=== PATIENT | female | born 1995 | race Two or more races ===

== ENCOUNTER → 2024-04-10 | Outpatient (CLI) | payer MEDICAID ==
[2024-04-10 16:31] LABS: Basophils # (auto) 0 10 ^3/uL (0-0.2); Basophils % (auto) 0.6 % (0.0-2.0); Eosinophils # (auto) 0.1 10 ^3/uL (0-0.8); Hematocrit 35.8 % (36.0-46.0); Lymphocytes # (auto) 1.6 10 ^3/uL (0.4-5.4); Lymphocytes % (auto) 23.7 % (10.0-50.0); Mean Corpuscular Hemoglobin 27.2 pg (28.0-32.0); Mean Corpuscular Hgb Conc. 33.6 g/dL (32.0-36.0); Mean Corpuscular Volume 80.9 fL (80.0-100.0); Monocytes # (auto) 0.5 10 ^3/uL (0-1.3); Monocytes % (auto) 7.5 % (0.0-12.0); Neutrophils # (auto) 4.7 10 ^3/uL (1.6-8.6); Neutrophils % (auto) 67.2 % (37.0-80.0); Nucleated Red Blood Cells % 0.1 %; Platelet Count (auto) 294 10^3/uL (140-450); Red Blood Cells 4.42 10^6/uL (4.0-5.20); Red Cell Distribution Width 17.1 % (11.8-14.3); White Blood Cell 6.9 10^3/uL (4.4-10.8)
[2024-04-10 17:12] LABS: Triglycerides 120 mg/dL (< 150)
[2024-04-10 17:13] LABS: LDL Cholesterol 114 mg/dL (< 100)
[2024-04-10 17:14] LABS: Cholesterol 181 mg/dL (< 200); HDL Cholesterol 57 mg/dL (40-59)
[2024-04-10 17:22] LABS: Thyroid Stimulating Hormone 1.3 uIU/mL (0.55-4.78)
[2024-04-10 17:25] LABS: Beta HCG, Quantitative 52322.4 mIU/mL (1.5-4.2)
[2024-04-11 07:07] LABS: RPR Non Reactive (Non Reactive)
[2024-04-11 22:06] LABS: Chlamydia Trachomatis, NAA Negative (Negative); Neisseria gonorrhoeae, NAA Negative (Negative)
[2024-04-13 05:09] LABS: QuantiFERON-TB Gold Plus Negative (Negative)
== END | disposition home or self-care (01) ==
LOC: LAB 15:47
PROVIDERS: ATTEND Obstetrics & Gynecology
DX: Z34.00 Encounter for supervision of normal first pregnancy, unspecified trimester (principal); Z36.0 Encounter for antenatal screening for chromosomal anomalies; Z31.430 Encounter of female for testing for genetic disease carrier status for procreative management; N39.0 Urinary tract infection, site not specified
CPT/HCPCS: 36415; 80061; 83036; 84439; 84443; 84702; 85025; 86592; 86703; 86762; 86850; 86900; 86901; 87086; 87340; 87902

== ENCOUNTER → 2024-08-04 | Outpatient (CLI) | payer MEDICAID ==
[2024-08-04 09:47] LABS: Basophils # (auto) 0 10 ^3/uL (0-0.2); Basophils % (auto) 0.3 % (0.0-2.0); Eosinophils # (auto) 0.1 10 ^3/uL (0-0.8); Eosinophils % (auto) 0.9 % (0.0-7.0); Hematocrit 35.8 % (36.0-46.0); Hemoglobin 12.2 g/dL (12.2-16.2); Lymphocytes # (auto) 1.2 10 ^3/uL (0.4-5.4); Lymphocytes % (auto) 11.4 % (10.0-50.0); Mean Corpuscular Hemoglobin 29.5 pg (28.0-32.0); Mean Corpuscular Hgb Conc. 34.1 g/dL (32.0-36.0); Mean Corpuscular Volume 86.5 fL (80.0-100.0); Monocytes # (auto) 1.1 10 ^3/uL (0-1.3); Neutrophils # (auto) 8.1 10 ^3/uL (1.6-8.6); Neutrophils % (auto) 77.4 % (37.0-80.0); Platelet Count (auto) 231 10^3/uL (140-450); Red Blood Cells 4.14 10^6/uL (4.0-5.20); White Blood Cell 10.5 10^3/uL (4.4-10.8)
[2024-08-04 10:17] LABS: Alanine Aminotransferase 27 U/L (7-40); Albumin 4.1 g/dL (3.2-4.8); Alkaline Phosphatase 80 U/L (46-116); Anion Gap 7 (5-15); Aspartate Aminotransferase 22 U/L (13-40); Calcium 9.6 mg/dL (8.7-10.4); Carbon Dioxide 25 mmol/L (20-31); Chloride 105 mmol/L (98-107); Glucose 76 mg/dL (74-106); Potassium 3.8 mmol/L (3.5-5.1); Sodium 137 mmol/L (136-145)
[2024-08-04 10:19] LABS: Bilirubin, Total 0.6 mg/dL (0.2-1.0); Total Protein 6.5 g/dL (5.7-8.2)
[2024-08-04 10:24] LABS: BUN/Creatinine Ratio 8.8 (10.0-20.0); Blood Urea Nitrogen < 5 mg/dL (9-23)
[2024-08-05 07:06] LABS: RPR Non Reactive (Non Reactive)
[2024-08-05 22:06] LABS: Chlamydia Trachomatis, NAA Negative (Negative); Neisseria gonorrhoeae, NAA Negative (Negative)
== END | disposition home or self-care (01) ==
LOC: LAB 09:22
PROVIDERS: ATTEND Obstetrics & Gynecology
DX: Z34.80 Encounter for supervision of other normal pregnancy, unspecified trimester (principal)
CPT/HCPCS: 36415; 80053; 82951; 83036; 85025; 86592; 86850; 86900; 86901

== ENCOUNTER → 2024-09-17 | Outpatient (CLI) | payer MEDICAID ==
[2024-09-17 11:58] LABS: Basophils # (auto) 0 10 ^3/uL (0-0.2); Basophils % (auto) 0.3 % (0.0-2.0); Eosinophils # (auto) 0.1 10 ^3/uL (0-0.8); Eosinophils % (auto) 0.9 % (0.0-7.0); Hematocrit 38.5 % (36.0-46.0); Hemoglobin 13.3 g/dL (12.2-16.2); Lymphocytes # (auto) 1.7 10 ^3/uL (0.4-5.4); Lymphocytes % (auto) 19.9 % (10.0-50.0); Mean Corpuscular Hemoglobin 29.3 pg (28.0-32.0); Mean Corpuscular Hgb Conc. 34.5 g/dL (32.0-36.0); Monocytes # (auto) 0.9 10 ^3/uL (0-1.3); Monocytes % (auto) 11.1 % (0.0-12.0); Neutrophils # (auto) 5.8 10 ^3/uL (1.6-8.6); Neutrophils % (auto) 67.8 % (37.0-80.0); Nucleated Red Blood Cells % 0.1 %; Platelet Count (auto) 217 10^3/uL (140-450); Red Blood Cells 4.53 10^6/uL (4.0-5.20); Red Cell Distribution Width 13.8 % (11.8-14.3); White Blood Cell 8.5 10^3/uL (4.4-10.8)
[2024-09-17 12:26] LABS: Alanine Aminotransferase 11 U/L (7-40); Anion Gap 8 (5-15); Calcium 9.9 mg/dL (8.7-10.4); Carbon Dioxide 24 mmol/L (20-31); Chloride 107 mmol/L (98-107); Potassium 3.9 mmol/L (3.5-5.1); Sodium 139 mmol/L (136-145); Total Protein 6.7 g/dL (5.7-8.2); Uric Acid 4.3 mg/dL (3.1-7.8)
[2024-09-17 12:27] LABS: Albumin 4.1 g/dL (3.2-4.8); Aspartate Aminotransferase 17 U/L (13-40); Bilirubin, Total 0.6 mg/dL (0.2-1.0)
[2024-09-17 12:40] LABS: Alkaline Phosphatase 116 U/L (46-116); BUN/Creatinine Ratio 8.9 (10.0-20.0); Blood Urea Nitrogen < 5 mg/dL (9-23); Glucose 67 mg/dL (74-106)
[2024-09-17 13:10] LABS: Protein, Urine < 6.0 mg/dL (1-14)
[2024-09-17 13:11] LABS: Creatinine, Urine 34.29 mg/dL (30.0-125.0); Urine Protein/Creatinine Ratio 0.17
== END | disposition home or self-care (01) ==
LOC: LAB 11:24
PROVIDERS: ATTEND Obstetrics & Gynecology
DX: Z34.80 Encounter for supervision of other normal pregnancy, unspecified trimester (principal); Z3A.00 Weeks of gestation of pregnancy not specified
CPT/HCPCS: 36415; 80053; 82570; 84156; 84550; 85025

== ENCOUNTER → 2024-09-24 | Outpatient (CLI) | payer MEDICAID ==
[2024-09-24 10:43] LABS: Protein, Urine < 6.0 mg/dL (1-14); Urine Total Volume, 24 Hours 2400 mL
== END | disposition home or self-care (01) ==
LOC: LAB 10:06
PROVIDERS: ATTEND Obstetrics & Gynecology
DX: Z34.80 Encounter for supervision of other normal pregnancy, unspecified trimester (principal); Z3A.00 Weeks of gestation of pregnancy not specified
CPT/HCPCS: 84156

== ENCOUNTER 2024-10-09 07:08 | Observation (INO) | payer MEDICAID ==
--- NOTE | 2024-10-09 15:51 | DVH ---
BIOPHYSICAL PROFILE HISTORY: IUGR TECHNIQUE: Multiple transabdominal real-time grayscale sonographic images through the gravid uterus of the fetus with duplex Doppler color flow and M-mode spectral analysis FINDINGS: BIOPHYSICAL PROFILE: breathing score: 2 movement score: 2 tone score: 2 Quantitative OLIVIA score: 2 (OLIVIA: 10.9 Cm.) Total score: 8/8 The cervix not measured Single live fetus in cephalic presentation. heart rate 136 beats per minute. Anterior Grade 2-3 placenta without previa or abruption Single live fetus at 36 weeks 1 day Biophysical profile score 8/8 corresponding to an EFREN of 11/05/2024 Estimated weight not calculated g IMPRESSION: 1. Biophysical profile score: 8/8
[2024-10-09] MEDS ORDERED: PREN-96 PO (16:23)
--- NOTE | 2024-10-14 14:24 | DVHDS2 ---
Physician Discharge Progress N Final Diagnosis: iugr Operations or Procedures: Operations or Procedures nst,sono Condition on Discharge: Good Disposition: Home Discharge Instructions: Diet: Regular Activity: No Restrictions, As Tolerated Medications: na Follow Up Care: Specialist: 3d Discharge Statement: "Patient was advised to return to the ER or call 911 if any headaches, dizziness, shortness of breath, chest pain, abdominal pain, bleeding, fevers, or worsening of medical condition. Patient was counseled about treatment plan, medications, possible side effects, patientverbalized understanding. All questions were answered to the best of my ability. This discharge took greater then 30 minutes in planning, reviewing documentation, counseling the patient, and discussing with other team members." Visit Coding OBGYN Date of Service: Oct 09, 2024 Billing Provider: RAMONITA OLEA DO HOLE PUNCHER STRAP Common Visit Codes: [id number] OBS CARE (HIGH) HOLE PUNCHER STRAP Procedure Codes: 90523-58- NON-STRESS TEST RAMONITA OLEA DO Oct 14, 2024 14:24
== END 2024-10-09 16:42 | disposition home or self-care (01) ==
LOC: LDRP 14:35 → UNDOADMOB 14:35 → LDRP 14:42
PROVIDERS: ADMIT Obstetrics & Gynecology; ATTEND Obstetrics & Gynecology
DX: O36.5930 Maternal care for other known or suspected poor fetal growth, third trimester, not applicable or unspecified (principal); Z3A.36 36 weeks gestation of pregnancy; Z79.899 Other long term (current) drug therapy
CPT/HCPCS: 76819; 81002; 94760; G0378

== ENCOUNTER 2024-10-14 07:19 | Observation (INO) | payer MEDICAID ==
[~2024-10-14 07:19] MED LIST: PREN-96 PO
--- NOTE | 2024-10-14 12:46 | DVHDS2 ---
Physician Discharge Progress N Final Diagnosis: iugr 36wks Operations or Procedures: Operations or Procedures nst,sono Condition on Discharge: Good Disposition: Home Discharge Instructions: Diet: Regular Activity: No Restrictions, As Tolerated Medications: na Follow Up Care: Specialist: christi brunson in 2days Discharge Statement: "Patient was advised to return to the ER or call 911 if any headaches, dizziness, shortness of breath, chest pain, abdominal pain, bleeding, fevers, or worsening of medical condition. Patient was counseled about treatment plan, medications, possible side effects, patientverbalized understanding. All questions were answered to the best of my ability. This discharge took greater then 30 minutes in planning, reviewing doc umentation, counseling the patient, and discussing with other team members." Visit Coding OBGYN Date of Service: Oct 14, 2024 Billing Provider: RAMONITA OLEA DO STAFF PHYSICAL THERAPIST Common Visit Codes: [id number] OBS CARE (HIGH) STAFF PHYSICAL THERAPIST Procedure Codes: 26956-59- NON-STRESS TEST RAMONITA OLEA DO Oct 14, 2024 12:46
--- NOTE | 2024-10-14 13:13 | DVH ---
BIOPHYSICAL PROFILE HISTORY: IUGR TECHNIQUE: Multiple transabdominal real-time grayscale sonographic images through the gravid uterus of the fetus with duplex Doppler color flow and M-mode spectral analysis FINDINGS: BIOPHYSICAL PROFILE: breathing score: 2 movement score: 2 tone score: 2 Quantitative OLIVIA score: 2 (OLIVIA: 13.5 Cm.) Total score: 8 The cervix not well visualized. Single live fetus in cephalic presentation. heart rate 126 beats per minute. Anterior placenta without previa or abruption IMPRESSION: Biophysical profile score: 8/8
== END 2024-10-14 12:38 | disposition home or self-care (01) ==
LOC: LDRP 11:15 → UNDOADMOB 11:15 → LDRP 11:23 → UNDODISOB 12:38
PROVIDERS: ADMIT Obstetrics & Gynecology; ATTEND Obstetrics & Gynecology
DX: O36.5930 Maternal care for other known or suspected poor fetal growth, third trimester, not applicable or unspecified (principal); Z98.890 Other specified postprocedural states; Z79.899 Other long term (current) drug therapy; Z3A.36 36 weeks gestation of pregnancy
CPT/HCPCS: 59025; 76819; 81002; 94760; G0378

== ENCOUNTER 2024-10-18 21:13 | Inpatient (IN) | payer MEDICAID ==
[~2024-10-18] VITALS: Ht 167.6 cm; Wt 69.9 kg
[2024-10-18 22:03] LABS: Basophils # (auto) 0 10 ^3/uL (0-0.2); Basophils % (auto) 0.4 % (0.0-2.0); Eosinophils # (auto) 0.1 10 ^3/uL (0-0.8); Eosinophils % (auto) 0.7 % (0.0-7.0); Hemoglobin 13.2 g/dL (12.2-16.2); Lymphocytes # (auto) 1.9 10 ^3/uL (0.4-5.4); Lymphocytes % (auto) 21.8 % (10.0-50.0); Mean Corpuscular Hemoglobin 29.3 pg (28.0-32.0); Mean Corpuscular Hgb Conc. 33.9 g/dL (32.0-36.0); Mean Corpuscular Volume 86.5 fL (80.0-100.0); Monocytes # (auto) 0.7 10 ^3/uL (0-1.3); Monocytes % (auto) 7.9 % (0.0-12.0); Neutrophils % (auto) 69.2 % (37.0-80.0); Platelet Count (auto) 198 10^3/uL (140-450); Red Blood Cells 4.51 10^6/uL (4.0-5.20); White Blood Cell 8.7 10^3/uL (4.4-10.8)
[2024-10-18 22:12] LABS: Urine Amorphous Crystal FEW /hpf (None Seen); Urine Bacteria FEW /hpf (None Seen); Urine Blood Negative /uL (Negative); Urine Clarity Turbid (Clear); Urine Color Light-Yellow (Yellow); Urine Mucus FEW (None Seen); Urine Protein, UAD Negative (Negative); Urine Specific Gravity 1.006 (1.001-1.035); Urine Squamous Epithelial Cell MOD /hpf (<5); Urine Urobilinogen Normal (Negative); Urine WBC 2 /HPF (0-5)
[2024-10-18 22:17] LABS: INR 1.02 (0.9-1.15); Partial Thromboplastin Time 28.8 SEC (24.5-34.5); Prothrombin Time 10.8 sec (9.3-11.8)
[2024-10-18 22:19] LABS: Alanine Aminotransferase 15 U/L (7-40); Albumin 4.1 g/dL (3.2-4.8); Anion Gap 11 (5-15); BUN/Creatinine Ratio 6.7 (10.0-20.0); Calcium 10.2 mg/dL (8.7-10.4); Chloride 106 mmol/L (98-107); Potassium 3.7 mmol/L (3.5-5.1); Sodium 136 mmol/L (136-145); Total Protein 6.8 g/dL (5.7-8.2)
[2024-10-18 22:20] LABS: Bilirubin, Total 0.5 mg/dL (0.2-1.0)
[2024-10-18 22:29] LABS: Amphetamine Screen, Urine Neg (NEGATIVE); Barbiturate Scree,Urine Neg (NEGATIVE); Benzodiazephine Screen, Urine Neg (NEGATIVE); Cannabinoid Screen, Urine Neg (NEGATIVE); Cocaine Screen, Urine Neg (NEGATIVE); Opiate Scree,Urine Neg (NEGATIVE); Phencyclidine Screen, Urine Neg (NEGATIVE)
[2024-10-18 22:29] LABS: Alkaline Phosphatase 154 U/L (46-116); Aspartate Aminotransferase 9 U/L (13-40); Blood Urea Nitrogen 5 mg/dL (9-23); Carbon Dioxide 19 mmol/L (20-31); Glucose 117 mg/dL (74-106)
--- NOTE | 2024-10-18 22:51 | DVH ---
LIMITED OB ULTRASOUND > 14 WKS: HISTORY: CONFIRM POSITION FOR INDUCTION OF LABOR TECHNIQUE: Multiple real-time grayscale images of the gravid uterus with duplex Doppler color flow an d M-mode spectral analysis. TRANSDUCER: Transabdominal FINDINGS: IUP single live fetus at 37 weeks 3 days based on composite averages of the BPD, head circumference, abdominal circumference and femur length Estimated weight not calculated grams heart rate 135 beats per minute OLIVIA 8.99 cm Cervix obscured by head Cephalic Presentation Anterior Grade 3 Placenta without previa or abruption. IMPRESSION: 1. IUP single live fetus at 37 weeks 3 days AUA corresponding to an EFREN of 11/05/2024. 2. FHR: 135 HS:Y
[2024-10-18] MEDS: WITCH HAZEL-GLYCERIN PAD TOP PRN (23:21)
[2024-10-18] MEDS: PHISODERM TOP SOLN 240ML BTL TOP PRN (23:21)
[2024-10-18] MEDS: DERMOPLAST 60ML BOTTLE TOP PRN (23:21)
[2024-10-18] MEDS: LACTATED RINGER'S 1,000 ML IV SCH (23:21)
[2024-10-18] MEDS: miSOPROStol 50 MCG per PRE-CUT 1/2 TAB PO PRN (23:22)
[2024-10-19 04:37] LABS: Creatinine, Urine 48.73 mg/dL (30.0-125.0)
[2024-10-19 04:38] LABS: Protein, Urine < 6.0 mg/dL (1-14)
--- NOTE | 2024-10-19 07:49 | DVHHP2 ---
OB CC & HPI Date Date of Admission: Oct 18, 2024 Patient Identification: : 3 Para: 2 EDC: Nov 05, 2024 EGA: 38 weeks Chief Complaints: Reason for admission: other (IUGR) Indication for induction: other (IUGR) Admission Nurse Assessment Rev: Yes History of Present Complaints US 6 wks confirming dates Past Medical History Cardiac: No pertinent Hx Pulmonary: No pertinent Hx Central Nervous System: No pertinent Hx GI: No pertinent Hx Hemotology/Oncology: No pertinent Hx Hepatobiliary: No pertinent Hx Psychiatric: No pertinent Hx Musculoskeletal: No pertinent Hx Rheumotologic: No pertinent Hx Infectious Disease: No peritnent Hx ENT: No pertinent Hx Renal/: No pertinent Hx Endocrine: No pertinent Hx Dermatology: No pertinent Hx OB History OB History Care: Good Care Ultrasounds: Normal mid trimester US Abnormal Ultrasound Findings: IUGR Obstetrical Complications: Growth Restriction Medical Complications: None Allergies: Coded Allergies: NO KNOWN ALLERGIES (Unverified , 10/18/24) Home Meds Reported Medications Vit W/ Ferrous Fumara ( One Daily) Daily Tab, 1 TAB PO DAILY, #90 TAB 3 Refills 10/09/24 Current Medications Current Medications Medications (Trade) Dose Ordered Sig/Tyrell Route PRN Reason Start Time Stop Time Status Last Admin Lactated Ringer's 1,000 ml @ 125 mls/hr Q8H IV 10/18/24 21:30 10/18/24 23:21 Nalbuphine HCl (Nubain) 10 mg Q4HP PRN IM MODERATE PAIN (4-6 PAIN SCALE) 10/18/24 21:30 Nalbuphine HCl (Nubain) 10 mg Q4HP PRN IV MODERATE PAIN (4-6 PAIN SCALE) 10/18/24 21:30 Carmelo Cantu (Tucks) 1 pad PRN PRN TOP PERINEAL AREA DISCOMFORT 10/18/24 21:30 10/18/24 23:21 Sodium Lauryl Sulfate (Phisoderm) 240 ml PRN PRN TOP PERINEAL AREA DISCOMFORT 10/18/24 21:30 10/18/24 23:21 Benzocaine (Dermoplast) 1 applic PRN PRN TOP PERINEAL AREA DISCOMFORT 10/18/24 21:30 10/18/24 23:21 Misoprostol (Cytotec) 50 mcg Q4HPRN PRN PO CERVICAL RIPENING 10/18/24 21:30 10/19/24 05:00 Lidocaine HCl (Xylocaine) 20 ml ONCE PRN IJ PERINEAL AREA DISCOMFORT 10/18/24 21:30 Family & Social History Family/Social History Blood Type: O+ Rubella: immune RPR/VDRL: Negative GBS Status: Negative HBsAG: Negative Review of Systems Constitutional: No symptom reported Ears, Nose, & Throat: No symptom reported Eyes: No symptom reported Pulmonary/Respiratory: No symptom reported Cardiovascular: No symptom reported Gastrointestinal: No symptom reported Genitourinary: No symptom reported Musculoskeletal: No symptom reported Skin: No symptom reported Psychiatric: No symptom reported Endocrine: No symptom reported Hemotologic/Lymphatic: No symptom reported OB Admission Exam Physical Exam HEENT: TMs Normal, Fontanelles Normal, Nasal Mucosa Normal, Eyes non-injected, Oropharynx Normal, PERRLA, Moist Membranes, EOMI Heart: Rhythm Normal Lungs: Clear Abdomen: Non tender Extremities: Normal Reflexes: Normal Cervical Dilatation: None Effacement: 0% Station: Ballotable Membranes: Intact Heart Rate: 130's Accelerations: Accelerations Present Short Term Variability: Present Mcfp Variability: Average (6-25) Contractions on Admission: >10 Minutes Apart Intensity: Mild OB Plan Plan Admitting Diagnosis: IOL FOR IUGR Plan: Induction Other Plan: Vaginal Cytotec serial. Consent: Risks benefits complications and alternatives discussed with regards to induction of labor also the risks of increased potential for and failed induction. Associated risks associated with section also discussed not limited infection bleeding anesthesia acute chronic pain damage to adjacent organs transfusion hep B HIV DVT transfusion reaction my stroke . All questions answered and encouraged. RENÉE CROCKETT DO Oct 19, 2024 07:49
--- NOTE | 2024-10-20 05:47 | DVHPN2 ---
Chief Complaints Patient reports: No new complaints Nursing reports: No new complaints, No abdominal pain, No chest pain, No dizziness, No cough Objective Medications Current Medications Medications (Trade) Dose Ordered Sig/Tyrell Route PRN Reason Start Time Stop Time Status Last Admin Oxytocin 1,000 ml @ 6 ml/hr Q24H IV 10/20/24 09:00 UNV General: Normal Lungs: Normal Cardiovascular: Normal Abdominal: Normal Musculoskeletal: Normal Extremities: Normal Skin: Normal Neurological: Normal Studies Laboratory Tests 10/18/24 21:43 Test 10/18/24 21:43 Range/Units Serum Glucose 117 H 74-106 mg/dL Ass/Plan Assessment Hospital Day #2 induction of labor 3cm Plan continue induction RENÉE CROCKETT DO Oct 20, 2024 05:47
[2024-10-20] MEDS: LACTATED RINGER'S 1,000 ML IV ONE (09:15)
[2024-10-20] MEDS: NALOXONE HCL 0.4 MG/ML VIAL IV ONE (09:15)
[2024-10-20] MEDS: ePHEDrine SULFATE 50 MG/ML AMP IV ONE (09:15)
[2024-10-20] MEDS: LACT. RINGERS/OXYTOCIN 20UNITS 1,000 ML IV SCH (12:17)
[2024-10-20] MEDS: LIDOCAINE 2%HCL (LOCAL ANESTH.) INJ 20ML MDV IJ PRN (15:33)
[2024-10-20] MEDS: LACT. RINGERS/OXYTOCIN 20UNITS 500 ML IV ONE (15:33)
[2024-10-20 19:15] VITALS: BP 134/84; PULSE 74; RESP 16; TEMP 98.2; O2SAT 98
[2024-10-20] MEDS: NALBUPHINE HCL 10 MG/1ml INJECTION IM PRN (20:32)
[2024-10-20] MEDS: NALBUPHINE HCL 10 MG/1ml INJECTION IV PRN (20:33)
[2024-10-20] MEDS: IBUPROFEN 600 MG TAB PO PRN (21:34)
[2024-10-20] MEDS: DOCUSATE SOD 100 MG CAP PO SCH (21:34)
[2024-10-20] MEDS: ONDANSETRON HCL 4 MG/2 ML VIAL IV PRN (21:40)
--- NOTE | 2024-10-20 22:44 | LDN2 ---
Labor and Delivery Note Date 10/20/24 Age 28 3/2 Para 2 AB 0 EDC 11/05/2024 EGA 375/7 Diagnosis IUGR induction Vaginal Delivery: VTX Vacuum Assisted: No Placenta: Spontaneous Sex: Male Apgars 8/9 Nuchal Cord Transected: Yes (loose) Amniotic Fluid: Clear Anesthesia Epidural Episiotomy: No Extension: Yes (1 degreee anterior) Repaired with 3-0 chromic EBL 300cc Labs Laboratory Tests 04/10/24 15:57: Hepatitis B Surface Antigen Negative, HIV (1&2) Antibody Negative, Rubella Antibody Positive Blood Bank 10/18/24 21:43: Blood Type O POSITIVE Complications none Conditions stable Lan Specialist none present RENÉE CROCKETT DO Oct 20, 2024 22:44
[2024-10-20 23:00] VITALS: BP 132/76; PULSE 68; RESP 16; TEMP 98.3; O2SAT 98
[2024-10-20] MEDS: ACETAMINOPHEN 325 MG TAB PO PRN (23:06)
[2024-10-21 03:00] VITALS: BP 131/68; PULSE 62; RESP 17; TEMP 98.1; O2SAT 100
--- NOTE | 2024-10-21 05:37 | DVHPN2 ---
Chief Complaints Patient reports: No new complaints, Other (PPD #1 minimal lochia no issues) Nursing reports: No new complaints, No abdominal pain, No chest pain, No dizziness, No cough Objective Vitals Vital Signs Date Time Temp Pulse Resp B/P (MAP) Pulse Ox O2 Delivery O2 Flow Rate FiO2 10/21/24 03:00 98.1 62 17 131/68 (89) 100 98.1 10/20/24 19:15 Room Air Medications Current Medications Medications (Trade) Dose Ordered Sig/Tyrell Route PRN Reason Start Time Stop Time Status Last Admin Acetaminophen (Tylenol Tablet) 650 mg Q4HP PRN PO MILD PAIN (1-3 PAIN SCALE) 10/20/24 16:00 10/21/24 03:10 Docusate Sodium (Colace Capsule) 200 mg HS PO 10/20/24 22:00 10/20/24 21:34 Ibuprofen (Motrin Tablet) 600 mg Q6HP PRN PO MODERATE PAIN (4-6 PAIN SCALE) 10/20/24 16:00 10/21/24 04:42 Ondansetron HCl (Zofran) 4 mg Q4HP PRN IV NAUSEA / VOMITING 10/20/24 16:00 10/20/24 21:40 Oxytocin 1,000 ml @ 6 ml/hr Q24H IV 10/20/24 09:00 10/20/24 12:17 General: Normal Lungs: Normal Cardiovascular: Normal Abdominal: Normal Musculoskeletal: Normal Extremities: Normal Skin: Normal Neurological: Normal Studies Laboratory Tests 10/18/24 21:43 Test 10/18/24 21:43 Range/Units Serum Glucose 117 H 74-106 mg/dL Ass/Plan Assessment PPD #1 stable improved Plan Advance care.... Infant IUGR symmetrical RENÉE CROCKETT DO Oct 21, 2024 05:37
[2024-10-21] MEDS: ROPIVACAINE HCL 200 ML ONE (06:18)
[2024-10-21] MEDS: LACT. RINGERS/OXYTOCIN 20UNITS 500 ML IV ONE (06:18)
[2024-10-21 06:45] VITALS: BP 112/58; PULSE 75; RESP 18; TEMP 98.2; O2SAT 98
[2024-10-21 11:00] VITALS: BP 118/72; PULSE 78; RESP 16; TEMP 98.3; O2SAT 98
[2024-10-21 15:00] VITALS: BP 124/76; PULSE 56; RESP 15; TEMP 98.2; O2SAT 100
[2024-10-21 19:30] VITALS: BP 129/74; PULSE 74; RESP 16; TEMP 98.1; O2SAT 99
[2024-10-21 23:10] VITALS: BP 128/66; PULSE 65; RESP 16; TEMP 98.3; O2SAT 100
[2024-10-22 02:15] VITALS: BP 128/60; PULSE 70; RESP 16; TEMP 98.1; O2SAT 100
[2024-10-22 07:11] VITALS: BP 123/76; PULSE 73; RESP 16; TEMP 98.1; O2SAT 100
--- NOTE | 2024-10-22 08:38 | DVHPN2 ---
Chief Complaints Patient reports: No new complaints, Other (PPD #1 minimal lochia no issues) Nursing reports: No new complaints, No abdominal pain, No chest pain, No dizziness, No cough Objective Vitals Vital Signs Date Time Temp Pulse Resp B/P (MAP) Pulse Ox O2 Delivery O2 Flow Rate FiO2 10/22/24 07:24 Room Air 10/22/24 07:11 98.1 73 16 123/76 (92) 100 98.1 General: Normal Lungs: Normal Cardiovascular: Normal Abdominal: Normal, Soft Musculoskeletal: Normal Extremities: Normal Skin: Normal Neurological: Normal Studies Laboratory Tests 10/18/24 21:43 Test 10/18/24 21:43 Range/Units Serum Glucose 117 H 74-106 mg/dL Ass/Plan Assessment s/p Plan dc home fu in 2wks Visit Coding OBGYN Date of Service: Oct 22, 2024 Billing Provider: RAMONITA OLEA DO W[employer]OW [employer] Common Visit Codes: [id number] INP/OBS CARE(HIGH), 90809-WSU/OBS DISCH DAY >30MIN RAMONITA OLEA DO Oct 22, 2024 08:38
--- NOTE | 2024-10-22 08:39 | DVHDS2 ---
Obstetrics Discharge Summary Obstetrics Discharge Summary Date of Admission: Oct 19, 2024 Date of Discharge: Oct 22, 2024 Reason For Admission: Induction of Labor Procedures: NST Intrapartum Procedures: Spontaneous vaginal deliv Procedures: None Operative Complicat: Laceration Discharge Diagnosis: Delivery Discharge Information: Activity (Other), Diet (Routine), Medications (None), Instructions (Routine), Discharge to (Home), Discarge date (-) Visit Coding OBGYN Date of Service: Oct 22, 2024 Billing Provider: RAMONITA OLEA DO CYLINDER DEVALVER Common Visit Codes: 28149-VDQ/OBS DISCH DAY >30MIN RAMONITA OLEA DO Oct 22, 2024 08:39
[2024-10-22 10:57] VITALS: BP 123/71; PULSE 85; RESP 18; TEMP 98.5; O2SAT 99
== END 2024-10-22 13:08 | disposition home or self-care (01) | DRG 560 ==
LOC: LDRP 21:13
PROVIDERS: ADMIT Obstetrics & Gynecology; ATTEND Obstetrics & Gynecology
PROC: 10E0XZZ Delivery of Products of Conception, External Approach (ICD-10-PCS; principal; 2024-10-20)
PROC: 3E0R3BZ Introduction of Anesthetic Agent into Spinal Canal, Percutaneous Approach (ICD-10-PCS; 2024-10-20)
PROC: 00HU33Z Insertion of Infusion Device into Spinal Canal, Percutaneous Approach (ICD-10-PCS; 2024-10-20)
PROC: 0HQ9XZZ Repair Perineum Skin, External Approach (ICD-10-PCS; 2024-10-20)
DX: O60.13X0 Preterm labor second trimester with preterm delivery third trimester, not applicable or unspecified (principal); Z37.0 Single live birth; O36.5930 Maternal care for other known or suspected poor fetal growth, third trimester, not applicable or unspecified; Z3A.38 38 weeks gestation of pregnancy; O70.0 First degree perineal laceration during delivery; O69.81X0 Labor and delivery complicated by cord around neck, without compression, not applicable or unspecified
CPT/HCPCS: 36415; 59409; 62282; 76815; 80053; 80307; 81001; 82570; 84156; 84550; 85025; 85610; 85730; 86780; 86803; 86850; 86900; 86901; 94760; 94762; 96360; 96361; 96365; 96366; 96374; G0378; J2405; J2590